=== PATIENT | female | born 1975 | race African-American/Black ===

== ENCOUNTER 2016-07-31 18:56 | Emergency (ER) | payer OTHER ==
[2016-07-31 19:13] VITALS: BP 142/92
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
--- NOTE | 2016-07-31 20:27 | RAD ---
HISTORY: Neck pain, headache, trauma COMPARISONS: November 04, 2009 TECHNIQUE: Multiple contiguous axial CT scans were obtained of the cervical spine without intravenous contrast, with coronal and sagittal multiplanar reformations. FINDINGS: BRAIN: The visualized brain is unremarkable CENTRAL CANAL: Evaluation of the central canal is limited on CT technique, however there is no obvious canalicular mass or epidural hemorrhage. ALIGNMENT: There is straightening of the normal cervical lordosis. VERTEBRAL BODIES: There is multilevel anterolateral marginal osteophyte formation. The odontoid process is intact. JOINTS: There is osteoarthritis of the lateral axial articulation. There is no subluxation or dislocation. MUSCULATURE: Unremarkable INTERVERTEBRAL DISCS: There is diffuse loss of intervertebral disc height. AXIAL IMAGES: On axial images, there is no osseous neural foraminal narrowing or central canal stenosis. SOFT TISSUES: The visualized soft tissues of the neck are unremarkable. The prevertebral fat stripe is preserved. OTHER: None. IMPRESSION: STRAIGHTENING OF THE CERVICAL LORDOSIS. DEGENERATIVE DISC DISEASE AND OSTEOARTHRITIS. NO ACUTE OSSEOUS INJURY TO THE CERVICAL SPINE
[2016-07-31] MEDS ORDERED: Naproxen TAB* 250 MG PO ONE (21:03)
== END 2016-07-31 21:20 | disposition home or self-care (01) ==
LOC: UCEAST 18:56
DX: S16.1XXA Strain of muscle, fascia and tendon at neck level, initial encounter (principal); S39.012A Strain of muscle, fascia and tendon of lower back, initial encounter; S06.0X0A Concussion without loss of consciousness, initial encounter; V43.52XA Car driver injured in collision with other type car in traffic accident, initial encounter; Y93.89 Activity, other specified; Y92.410 Unspecified street and highway as the place of occurrence of the external cause; M50.30 Other cervical disc degeneration, unspecified cervical region; M47.812 Spondylosis without myelopathy or radiculopathy, cervical region; Z88.0 Allergy status to penicillin
CPT/HCPCS: 70450; 72125; 99212; A9270-GY; G0463

== ENCOUNTER 2016-09-03 21:32 | Emergency (ER) | payer BC, OTHER ==
[2016-09-03 21:44] VITALS: BP 156/94
[2016-09-04] MEDS ORDERED: Sulfamethox/Trimethoprim DS 800/160* TAB PO ONE (01:20)
--- NOTE | 2016-09-04 08:03 | RAD ---
INDICATION: Painful indurated right breast mass. COMPARISON: There are no prior studies available for comparison. TECHNIQUE: Multiple real time images of the right breast were obtained. FINDINGS: At the 12:00 position located 1 cm from the nipple there is a complex cyst corresponding to the patient's palpable abnormality. There is an internal septation and a very small area of wall thickening or solid component. The results of this exam were discussed with Dr. Harris. IMPRESSION: THERE IS A COMPLEX CYSTIC MASS CORRESPONDING TO THE PATIENT'S PALPABLE ABNORMALITY. RECOMMEND A FOLLOW-UP MAMMOGRAPHIC STUDY AT THE EARLIEST POSSIBLE CONVENIENCE. IN ADDITION THIS CAN BE ASPIRATED IF CLINICALLY NEEDED. ACR BI-RADS Category 0: Incomplete - Need Additional Imaging Evaluation and /or Prior Mammograms for Comparison
--- NOTE | 2016-09-04 17:38 | ED ---
Breast Complaint - HPI Summary HPI Summary: Patient arrives to ED with CC of right breast mass which she felt this morning. She states it is very painful with warmth and redness. She states it feels heavy with intermittent burning. She is concerned for breast cancer. Denies fever or other symptoms. Patient is HIV positive and is also requesting a test. Patient does not have a family history of breast cancer. She does have a history of breast cysts from several years ago. She denies menses for several months. - History of Current Complaint Hx Obtained From: Patient Breast Chief Complaint: Breast, Left, Palpable Lump, Inflammation, Color Changes Onset/Duration: Started Hours Ago Timing: Constant Breast Pain Aggravating Factors: Palpation, Pressure Breast Pain Alleviating Factors: Nothing Breast Associated Signs/Symptoms: Nodule/Mass, Redness, Warmth - Allergy/Home Medications Allergies/Adverse Reactions: Allergies Allergy/AdvReac Type Severity Reaction Status Date / Time Penicillins [PCN] Allergy Severe Hives/Diff. Verified 07/31/16 19:04 Breathing/I tching citrus fruits Allergy Severe Hives/Diff. Uncoded 04/11/12 17:34 Breathing/I tching PMH/Surg Hx/FS Hx/Imm Hx Previously Healthy: Yes Endocrine/Hematology History: Reports: Hx Thyroid Disease - hypothyroidism Denies: Hx Anticoagulant Therapy, Hx Diabetes Cardiovascular History: Denies: Hx Congestive Heart Failure, Hx Deep Vein Thrombosis, Hx Hypertension , Hx Myocardial Infarction, Hx Pacemaker/ICD Respiratory History: Denies: Hx Asthma, Hx Chronic Obstructive Pulmonary Disease (COPD), Hx Lung Cancer, Hx Pneumonia, Hx Pulmonary Embolism GI History: Denies: Hx Gall Bladder Disease, Hx Gastrointestinal Bleed, Hx Ulcer, Hx Urosepsis History: Denies: Hx Kidney Stones, Hx Renal Disease Neurological History: Reports: Hx Headaches - THROUGHOUT ENTIRE HEAD Denies: Hx Dementia, Hx Migraine, Hx Seizures, Hx Transient Ischemic Attacks (TIA) Psychiatric History: Denies: Hx Anxiety, Hx Depression, Hx Schizophrenia, Hx Bipolar Disorder Infectious Disease History: No Infectious Disease History: Denies: Hx Hepatitis, Hx Human Immunodeficiency Virus (HIV), Traveled Outside the [place] in Last 30 Days - Family History Known Family History: Negative: Cardiac Disease, Hypertension - Social History Occupation: Unemployed Lives: With Family Alcohol Use: None Hx Substance Use: No Substance Use Type: Reports: None Hx Tobacco Use: No Smoking Status (MU): Never Smoked Tobacco Do You Chew or Dip Tobacco: No Review of Systems Constitutional: Negative ENT: Negative Cardiovascular: Negative Respiratory: Negative Musculoskeletal: Negative Positive: Other - palpable 2X3 mass with warmth and redness over right breast Neurological: Negative Psychological: Normal All Other Systems Reviewed And Are Negative: Yes Physical Exam Triage Information Reviewed: Yes Vital Signs On Initial Exam: Initial Vitals Temp Pulse Resp BP Pulse Ox 99.9 F 107 20 156/94 99 09/03/16 21:40 09/03/16 21:40 09/03/16 21:40 09/03/16 21:40 09/03/16 21:40 Vital Signs Reviewed: Yes Appearance: Positive: Well-Appearing, No Pain Distress, Well-Nourished Skin: Positive: Warm, Skin Color Reflects Adequate Perfusion, Other - palpable mass over right breast behind nipple 2X3 cm in size with associated slight warmth and redness. no dimpling or peau D/orange surface noted. extremely painful on palpation per patient. Eyes: Positive: EOMI, KARI Neck: Positive: Supple, No Lymphadenopathy Respiratory/Lung Sounds: Positive: Clear to Auscultation, Decreased Breath Sounds Cardiovascular: Positive: Normal, RRR Abdomen Description: Positive: Nontender Bowel Sounds: Positive: Present Musculoskeletal: Positive: Normal, Strength/ROM Intact Neurological: Positive: Sensory/Motor Intact, Alert, Oriented to Person Place, Time Psychiatric: Positive: Anxious AVPU Assessment: Alert - Shahida Coma Scale Coma Scale Total: 15 Diagnostics - Vital Signs Vital Signs Temp Pulse Resp BP Pulse Ox 09/03/16 21:40 99.9 F 107 20 156/94 99 - Laboratory Lab Statement: Any lab studies that have been ordered have been reviewed, and results considered in the medical decision making process. Breast Pain Course/Dx - Course Course Of Treatment: Palpable mass over right breast behind nipple 2X3 cm in size with associated slight warmth and redness. no dimpling or peau D/orange surface noted. extremely painful on palpation per patient. Patient sent for breast US. Discussed many possibilities for breast lumps. Patient will follow up with Dr. Jay this week for further evaluation. Provider explained she could not determine completely what the breast mass is, but d/t symptoms of mastitis with warmth, redness and tenderness, will treat with abx. Patient allergic to penicillins. Sent rx for bactrim d/t pen allergy. Tylenol for discomfort. - Differential Diagnoses Differential Diagnosis/HQI/PQRI: Breast Abscess, Breast Mass, Fibrocystic Breast Disease, Medication Induced - Diagnoses Provider Diagnoses: Breast mass Discharge - Discharge Plan Condition: Stable Disposition: HOME Prescriptions: Sulfamethox/Trimethoprim DS* [Bactrim DS 800/160 TAB*] 1 tab PO BID #28 tab Patient Education Materials: Breast Mass (ED) Referrals: Damaris Jay MD [Medical Doctor] - Layo Gooden MD [Primary Care Provider] - Additional Instructions: Follow up with your PCP or OBGYN. You have been prescribed bactrim twice daily for 14 days for possible mastitis. As discussed, based on the results of the US, we are unable to determine what the mass may be. We have discussed fibroadenoma, infection (mastitis), and breast cyst. Follow up with your primary or OBGYN for them to determine if you will need further workup. May take ibuprofen 600mg three times daily with meals for any discomfort. If you develop fever, sweats, chills, worsening pain, notice any erythema around the area of concern, red streaking from the area, or drainage - return to ED immediately.
== END 2016-09-04 01:42 | disposition home or self-care (01) ==
LOC: ED 21:32
DX: N63 Unspecified lump in breast (principal)
CPT/HCPCS: 99282; A9270-GY

== ENCOUNTER 2017-05-19 11:12 | Emergency (ER) | payer BC ==
[2017-05-19] MEDS ORDERED: Ibuprofen TAB* 400 MG PO ONE (12:53)
[2017-05-19] MEDS ORDERED: traMADol TAB* 50 MG PO ONE (12:53)
[2017-05-19 13:30] LABS: Hematocrit 36 % (35-47); Hemoglobin 12.1 g/dl (12.0-16.0); Mean Corpuscular HGB Conc 34 g/dl (31-36); Mean Corpuscular Hemoglobin 33 pg (27-31); Mean Corpuscular Volume 96 fL (80-97); Mean Platelet Volume 9 um3 (7.4-10.4); Red Blood Count 3.72 10^6/ul (4.0-5.4); Red Cell Distribution Width 14 % (10.5-15); White Blood Count 8.4 10^3/ul (3.5-10.8)
--- NOTE | 2017-05-19 13:45 | RAD ---
INDICATION: Lower abdominal pain, history of cysts. COMPARISON: Comparison is made with a prior pelvic ultrasound study from March 12, 2017. TECHNIQUE: Multiple real-time transabdominal images of the pelvis were obtained. FINDINGS: The uterus is retroverted and heterogeneous in echogenicity. The uterus measured 9.6 x 5.9 x 6.8 cm. The endometrial echo measured 0.8 cm in thickness. There are masses in the anterior body of the uterus and posterior body and fundus of the uterus measuring 1.8 x 2.3 x 1.7 and 3.8 x 3.7 x 2.2 cm respectively. The right ovary measured 4.4 x 2.2 x 3.6 cm. The left ovary measured 4.5 x 1.7 x 3.3 cm. There is vascular flow within both ovaries. There has been interval resolution of the previously noted small complex ovarian cysts consistent with resolution of physiologic cysts. No free intraperitoneal fluid is seen. IMPRESSION: MILDLY ENLARGED UTERUS WITH SMALL TO MODERATE SIZE FIBROIDS.
[2017-05-19 13:50] LABS: ALT 15 U/L (7-52); AST 17 U/L (13-39); Albumin 3.9 g/dL (3.2-5.2); Alkaline Phosphatase 105 U/L (34-104); Anion Gap 4 mmol/L (2-11); BUN/Creatinine Ratio 14.8 (8-20); Blood Urea Nitrogen 13 mg/dL (6-24); C Reactive Protein 19.07 mg/L (< 5.00); CO2 Carbon Dioxide 27 mmol/L (22-32); Calcium 9.3 mg/dL (8.6-10.3); Chloride 103 mmol/L (101-111); EGFR African American 90.6 (>60); EGFR Non-African American 70.5 (>60); Globulin 3.5 g/dL (2-4); Glucose 88 mg/dL (70-100); Lipase < 10 U/L (11.0-82.0); Potassium 3.5 mmol/L (3.5-5.0); Sodium 134 mmol/L (133-145); Total Protein 7.4 g/dL (6.4-8.9)
[2017-05-19] MEDS ORDERED: Iohexol 300* (CONTRAST) 10 ML SDV IV ONE (14:43)
[2017-05-19 15:14] LABS: Urine Bacteria 1+ (Absent); Urine Bilirubin Negative (Negative); Urine Glucose Negative (Negative); Urine Nitrite Negative (Negative)
--- NOTE | 2017-05-19 16:41 | RAD ---
INDICATION: Lower abdominal pain, elevated C-reactive protein. COMPARISON: Comparison is made with a prior study from March 17, 2010. TECHNIQUE: A CT scan of the abdomen and pelvis was performed with intravenous and oral contrast following intravenous injection of 88 ml of Omnipaque 300 nonionic contrast. Contiguous axial sections were obtained from the lung bases through the symphysis pubis. Images were reconstructed in the coronal and sagittal planes. FINDINGS: The lung bases are clear. No pleural effusion is present. The liver and spleen are normal in size. There are several very small hypodensities present within the liver which are too small to characterize by CT although likely represent cysts. No intra or extrahepatic ductal distention is noted. No calcified gallstones are seen. The pancreas appears to be within normal limits. The kidneys and adrenal glands are normal in size. No hydronephrosis is seen. No significant focal renal abnormality is seen. The aorta is normal in caliber and demonstrates homogeneous contrast opacification. No significant enlarged retroperitoneal lymph nodes are seen. The stomach, small and large bowel appear nondistended. The appendix is within normal limits. There are a few scattered diverticuli. There is no evidence for diverticulitis or colitis. The uterus is retroverted and within normal limits in size. No ovarian cysts are seen. No free intraperitoneal air or fluid is seen. No significant focal osseous abnormality is seen. IMPRESSION: NO EVIDENCE FOR ACUTE FINDING OR CAUSE FOR THE PATIENT'S ABDOMINAL PAIN IS SEEN.
[2017-05-19 17:45] VITALS: BP 129/97
--- NOTE | 2017-05-19 20:01 | ED ---
Mariola Yoon Gabriel, scribed for Tuan Mae MD on 05/19/17 at 1233 . Abdominal Pain/Female - HPI Summary HPI Summary: This patient is a 42 year old F presenting to [facility] accompanied by mother with a chief complaint of ABD since January. The patient rates the pain 7/10 in severity. Symptoms aggravated by moving. Patient reports lactating, nausea, back pain, increased urination, and fatigue. Patient denies fever, trouble with BM, and melena. 5 days ago she had trouble standing up and 4 days ago she began feeling like everything was going to fall out when she has a BM. She has a cyst in her left breast that is benign. Patient denies sexual activity in the last couple months. - History of Current Complaint Chief Complaint: EDAbdPain Stated Complaint: LOWER ABD PAIN Time Seen by Provider: 05/19/17 12:31 Hx Obtained From: Patient Hx Last Menstrual Period: 05/16/17 ?: No Onset/Duration: Lasting Weeks - since january, Still Present Timing: Constant Severity Currently: Moderate Pain Intensity: 7 Pain Scale Used: 0-10 Numeric Aggravating Factor(s): Movement Associated Signs and Symptoms: Positive: Negative - melena, Back Pain, Urinary Symptoms - increased urination, Nausea, Other: - . Negative: Fever, Vomiting Allergies/Adverse Reactions: Allergies Allergy/AdvReac Type Severity Reaction Status Date / Time Penicillins [PCN] Allergy Severe Hives/Diff. Verified 05/19/17 11:19 Breathing/I tching citrus fruits Allergy Severe Hives/Diff. Uncoded 05/19/17 11:19 Breathing/I tching PMH/Surg Hx/FS Hx/Imm Hx Previously Healthy: No Endocrine/Hematology History: Reports: Hx Thyroid Disease - hypothyroidism Denies: Hx Anticoagulant Therapy, Hx Diabetes Cardiovascular History: Denies: Hx Congestive Heart Failure, Hx Deep Vein Thrombosis, Hx Hypertension , Hx Myocardial Infarction, Hx Pacemaker/ICD Respiratory History: Denies: Hx Asthma, Hx Chronic Obstructive Pulmonary Disease (COPD), Hx Lung Cancer, Hx Pneumonia, Hx Pulmonary Embolism GI History: Denies: Hx Gall Bladder Disease, Hx Gastrointestinal Bleed, Hx Ulcer, Hx Urosepsis History: Denies: Hx Kidney Stones, Hx Renal Disease Neurological History: Reports: Hx Headaches - THROUGHOUT ENTIRE HEAD Denies: Hx Dementia, Hx Migraine, Hx Seizures, Hx Transient Ischemic Attacks (TIA) Psychiatric History: Denies: Hx Anxiety, Hx Depression, Hx Schizophrenia, Hx Bipolar Disorder Infectious Disease History: No Infectious Disease History: Denies: Hx Hepatitis, Hx Human Immunodeficiency Virus (HIV), Traveled Outside the [place] in Last 30 Days - Family History Known Family History: Negative: Cardiac Disease, Hypertension - Social History Alcohol Use: None Hx Substance Use: No Substance Use Type: Reports: None Hx Tobacco Use: No Smoking Status (MU): Never Smoked Tobacco Review of Systems Positive: Fatigue, Other - . Negative: Fever, Chills Negative: Erythema Negative: Sore Throat Negative: Chest Pain Negative: Shortness Of Breath, Cough Positive: Abdominal Pain, Nausea, Other - increased urination . Negative: Vomiting Genitourinary: Negative - trouble with BM, melena Negative: dysuria, hematuria Positive: Other - back pain. Negative: Myalgia, Edema Negative: Rash Neurological: Negative - dizziness All Other Systems Reviewed And Are Negative: Yes Physical Exam - Summary Physical Exam Summary: Constitutional: Well-developed, Well-nourished, Alert. (-) Distressed Skin: Warm, Dry HENT: Normocephalic; Atraumatic Eyes: Conjunctiva normal Neck: Musculoskeletal ROM normal neck. (-) JVD, (-) Stridor, (-) Tracheal deviation Cardio: Rhythm regular, rate normal, Heart sounds normal; Intact distal pulses; The pedal pulses are 2+ and symmetric. Radial pulses are 2+ and symmetric. (-) Murmur Pulmonary/Chest wall: Effort normal. (-) Respiratory distress, (-) Wheezes, (-) Rales Abd: Soft, (-) Tenderness, (-) Guarding, (-) Rebound. Patient is reporting pain but there is not significant abdominal tenderness. Her abdomen is protuberant. Musculoskeletal: (-) Edema Lymph: (-) Cervical adenopathy Neuro: Alert, Oriented x3 Psych: Mood and affect Normal Triage Information Reviewed: Yes Vital Signs On Initial Exam: Initial Vitals Temp Pulse Resp BP Pulse Ox 98.2 F 97 16 133/84 99 05/19/17 11:19 05/19/17 11:19 05/19/17 11:19 05/19/17 11:19 05/19/17 11:19 Vital Signs Reviewed: Yes Diagnostics - Vital Signs Vital Signs Temp Pulse Resp BP Pulse Ox 05/19/17 11:19 98.2 F 97 16 133/84 99 - Laboratory Result Diagrams: 05/19/17 13:18 05/19/17 13:18 Lab Statement: Any lab studies that have been ordered have been reviewed, and results considered in the medical decision making process. - CT CT ABD/Pelvis CT Interpretation Completed By: Radiologist - NO EVIDENCE FOR ACUTE FINDING OR CAUSE FOR THE PATIENT'S ABDOMINAL PAIN IS SEEN. ED physician has reviewed this radiology report and agrees. - Additional Comments Diagnostic Additional Comments: Pelvic US reveals, per radiologist, MILDLY ENLARGED UTERUS WITH SMALL TO MODERATE SIZE FIBROIDS. ED physician has reviewed this radiology report and agrees. Abdominal Pain Fem Course/Dx - Diagnoses Provider Diagnoses: Chronic pelvic pain in female Discharge - Discharge Plan Condition: Stable Disposition: HOME Patient Education Materials: Pelvic Pain in Women (ED) Referrals: Layo Gooden MD [Primary Care Provider] - Elroy Campbell MD [Medical Doctor] - Additional Instructions: Follow up with Dr. Campbell, OB. Take aspirin as needed for pain. RETURN TO THE EMERGENCY DEPARTMENT FOR CHANGING OR WORSENING SYMPTOMS The documentation as recorded by the Mariola smith Gabriel accurately reflects the service I personally performed and the decisions made by me, Tuan Mae MD.
== END 2017-05-19 17:45 | disposition home or self-care (01) ==
LOC: ED 11:12
DX: R10.2 Pelvic and perineal pain (principal); G89.29 Other chronic pain
CPT/HCPCS: 36415; 74177; 76856; 80053; 81003; 81015; 83605; 83690; 84702; 85025; 86140; 87086; 96374; 99282; A9270-GY; Q9967

== ENCOUNTER 2018-07-19 21:31 | Emergency (ER) | payer BC, OTHER ==
[2018-07-19 21:45] VITALS: BP 151/99
--- NOTE | 2018-07-19 22:37 | UC ---
Minor Trauma HPI - HPI Summary HPI Summary: PATIENT SLIPPED ON THE ICE AND FELL TODAY LANDING ON HER RIGHT KNEE AND RIGHT ARM. COMES IN WITH PAIN AND DECREASED RANGE OF MOTION. NO HEAD INJURY OR LOC. - History of Current Complaint Chief Complaint: UCLowerExtremity Stated Complaint: SIDE AND KNEE INJURY Time Seen by Provider: 07/19/18 22:24 Hx Obtained From: Patient Hx Last Menstrual Period: one week ago Onset/Duration: Sudden Onset, Lasting Hours, Still Present Onset Of Pain: Immediate Severity Initially: Moderate Severity Currently: Moderate Pain Intensity: 7 Pain Scale Used: 0-10 Numeric Mechanism Of Injury: Fall From A Standing Position Aggravating Factor(s): Movement Alleviating Factor(s): Nothing Associated Signs And Symptoms: Negative: Loss Of Consciousness, Ecchymosis, Swelling - Allergies/Home Medications Allergies/Adverse Reactions: Allergies Allergy/AdvReac Type Severity Reaction Status Date / Time Penicillins Allergy Hives/Diff. Verified 07/19/18 21:45 Breathing/I tching citrus fruits Allergy Severe Hives/Diff. Uncoded 05/19/17 11:19 Breathing/I tching Home Medications: Home Medications NK [No Home Medications Reported] 07/19/18 [History Confirmed 07/19/18] PMH/Surg Hx/FS Hx/Imm Hx Endocrine History: Thyroid Disease Other History Of: Negative For: HIV, Hepatitis B, Hepatitis C, Anticoagulant Therapy - Surgical History Surgical History: None - Family History Known Family History: Negative: Cardiac Disease, Hypertension - Social History Alcohol Use: None Substance Use Type: None Smoking Status (MU): Never Smoked Tobacco - Immunization History Most Recent Influenza Vaccination: doesn't usually get Review of Systems All Other Systems Reviewed And Are Negative: Yes Constitutional: Positive: Negative Skin: Positive: Negative Respiratory: Positive: Negative Cardiovascular: Positive: Negative Gastrointestinal: Positive: Negative Musculoskeletal: Positive: Arthralgia, Decreased ROM, Myalgia Physical Exam Triage Information Reviewed: Yes Appearance: Well-Nourished, Pain Distress - MODERATE Vital Signs: Initial Vital Signs Temp 99.2 F 07/19/18 21:41 Pulse 97 07/19/18 21:41 Resp 18 07/19/18 21:41 BP 151/99 07/19/18 21:41 Pulse Ox 99 07/19/18 21:41 Vital Signs Reviewed: Yes Eyes: Positive: Conjunctiva Clear ENT: Positive: Hearing grossly normal Neck: Positive: Supple Respiratory: Positive: No respiratory distress, No accessory muscle use Cardiovascular: Positive: Pulses Normal Abdomen Description: Positive: Soft Musculoskeletal: Positive: No Edema, ROM Limited @ - RIGHT KNEE, Other: - TTP DIFFUSELY OVER RIGHT KNEE. FULL EXAM NOT PERFORMED DUE TO PT INTOLERANCE. TTP DIFFUSELY OVER RIGHT FOREARM. NO WRIST/HAND TENDERNESS. NO SHOULDER JOINT TENDERNESS. TENDER RIGHT TRAPEZIUS Neurological: Positive: Alert Psychological: Positive: Age Appropriate Behavior Skin: Negative: Rashes Diagnostics - Radiology RIGHT KNEE XRAY Radiology Interpretation Completed By: ED Physician Summary of Radiographic Findings: UNREMARKABLE RIGHT FOREARM XRAY Radiology Interpretation Completed By: ED Physician Summary of Radiographic Findings: UNREMARKABLE Minor Trauma Course/Dx - Differential Dx/Diagnosis Provider Diagnosis: Right knee sprain, Contusion of right forearm Discharge - Sign-Out/Discharge Documenting (check all that apply): Patient Departure All imaging exams completed and their final reports reviewed: No - Discharge Plan Condition: Stable Disposition: HOME Patient Education Materials: Knee Sprain (ED), Contusion in Adults (ED) Referrals: Layo Gooden MD [Primary Care Provider] - If Needed Additional Instructions: XRAYS TODAY NEGATIVE FOR FRACTURE OR DISLOCATION ON MY INITIAL INTERPRETATION. WE WILL CALL YOU TOMORROW IF THE RADIOLOGY READ DIFFERS. YOUR SYMPTOMS SHOULD IMPROVE SIGNIFICANTLY OVER THE NEXT 1-2 WEEKS. IF YOU DO NOT IMPROVE EXPECTED FOLLOW-UP WITH YOUR PCP. YOU MAY BENEFIT FROM REPEAT IMAGING AT THAT TIME. OTC IBUPROFEN OR ALEVE NEEDED FOR DISCOMFORT. REST, ICE, COMPRESS, ELEVATE. BE SURE TO GO THROUGH SLOW RANGE OF MOTION AND STRETCHING EXERCISES DAILY YOU ARE ABLE TO PREVENT STIFFENING UP AND MAKING THE DISCOMFORT WORSE. IBUPROFEN MAX DOSE: 600MG (3 TABS) EVERY 6 HRS OR 800MG (4 TABS) EVERY 8 HRS OR NAPROXEN MAX DOSE: 440MG (2 TABS) EVERY 12 HRS TYLENOL MAX DOSE: 1000MG (2 EXTRA STRENGTH TABS) EVERY 8 HRS OR 650MG (2 REGULAR TABS) EVERY 6 HRS - Billing Disposition and Condition Condition: STABLE Disposition: Home
--- NOTE | 2018-07-20 15:07 | UC ---
- Progress Note Progress Note: OFFICIAL RADIOLOGY REPORT REVIEWED AND CONFIRMS NO FRACTURE. NO CHANGE IN MGMT. Course/Dx - Diagnoses Provider Diagnoses: Right knee sprain, Contusion of right forearm Discharge - Sign-Out/Discharge Documenting (check all that apply): Post-Discharge Follow Up All imaging exams completed and their final reports reviewed: Yes - Discharge Plan Condition: Stable Disposition: HOME Patient Education Materials: Knee Sprain (ED), Contusion in Adults (ED) Referrals: Layo Gooden MD [Primary Care Provider] - If Needed Additional Instructions: XRAYS TODAY NEGATIVE FOR FRACTURE OR DISLOCATION ON MY INITIAL INTERPRETATION. WE WILL CALL YOU TOMORROW IF THE RADIOLOGY READ DIFFERS. YOUR SYMPTOMS SHOULD IMPROVE SIGNIFICANTLY OVER THE NEXT 1-2 WEEKS. IF YOU DO NOT IMPROVE EXPECTED FOLLOW-UP WITH YOUR PCP. YOU MAY BENEFIT FROM REPEAT IMAGING AT THAT TIME. OTC IBUPROFEN OR ALEVE NEEDED FOR DISCOMFORT. REST, ICE, COMPRESS, ELEVATE. BE SURE TO GO THROUGH SLOW RANGE OF MOTION AND STRETCHING EXERCISES DAILY YOU ARE ABLE TO PREVENT STIFFENING UP AND MAKING THE DISCOMFORT WORSE. IBUPROFEN MAX DOSE: 600MG (3 TABS) EVERY 6 HRS OR 800MG (4 TABS) EVERY 8 HRS OR NAPROXEN MAX DOSE: 440MG (2 TABS) EVERY 12 HRS TYLENOL MAX DOSE: 1000MG (2 EXTRA STRENGTH TABS) EVERY 8 HRS OR 650MG (2 REGULAR TABS) EVERY 6 HRS - Billing Disposition and Condition Condition: STABLE Disposition: Home
== END 2018-07-19 23:13 | disposition home or self-care (01) ==
LOC: UCEAST 21:31
DX: S83.91XA Sprain of unspecified site of right knee, initial encounter (principal); S50.11XA Contusion of right forearm, initial encounter; W00.0XXA Fall on same level due to ice and snow, initial encounter; Y92.9 Unspecified place or not applicable
CPT/HCPCS: 99212; G0463

== ENCOUNTER 2019-05-08 10:06 | Emergency (ER) | payer BC, OTHER ==
[2019-05-08 10:17] VITALS: BP 151/104
--- NOTE | 2019-05-08 10:29 | UC ---
Back Pain HPI - HPI Summary HPI Summary: CHIEF COMPLAINT and HPI: This is a 44-year-old female who fell approximately 24 hours ago, landing on her left buttocks. She complains of 8 out of 10 buttocks pain. Note is made of a blood pressure of 151/104. The patient is on thyroid medication, but is not on any antihypertensive medication. She is HIV positive. She also states that on April 16 she had a D&C. She is now having her period. She describes as very heavy. She denies abdominal pain. She denies blood in the stools in her urine. Description of Pain: Location:area of the coccyx Radiation:nonradiating Type:, worse with ambulation and sitting Intensity:moderate to severe Variation:, better with standing. VITAL SIGNS & SaO2 REVIEWED. Within normal limits unless noted here. NURSES NOTE REVIEWED. - History of Current Complaint Chief Complaint: UCBackPain Stated Complaint: BACK INJURY Time Seen by Provider: 05/08/19 10:24 Hx Last Menstrual Period: 05/06/19 Pain Intensity: 8 - Allergies/Home Medications Allergies/Adverse Reactions: Allergies Allergy/AdvReac Type Severity Reaction Status Date / Time fentanyl Allergy difficulty Verified 05/08/19 10:17 wakening Penicillins Allergy Hives/Diff. Verified 05/08/19 10:17 Breathing/I tching citrus fruits Allergy Severe Hives/Diff. Uncoded 05/08/19 10:17 Breathing/I tching Home Medications: Home Medications Levothyroxine TAB* [Synthroid 100 MCG TAB*] 100 mcg PO DAILY 05/08/19 [History Confirmed 05/08/19] PMH/Surg Hx/FS Hx/Imm Hx - Additional Past Medical History Additional PMH: PAST MEDICAL HISTORY- patient is hypothyroid and is on levothyroxine. Patient is HIV positive and has a CD4 count of 1500. CHRONIC and RECURRENT HEALTH PROBLEM LIST REVIEWED. Information relevant to present complaint: patient is having menses and had a D& C for an ovarian cyst on April 16, 2019 VISIT HISTORY REVIEWED. MEDICATIONS & ALLERGIES REVIEWED. HYPERTENSION STATUS:No antihypertensive medication. FAMILY HISTORY:. Hypertension. SOCIAL HISTORY: non-smoker. . Previously Healthy: Yes Other History Of: Negative For: HIV, Hepatitis B, Hepatitis C, Anticoagulant Therapy - Surgical History Surgical History: None - Family History Known Family History: Negative: Cardiac Disease, Hypertension - Social History Alcohol Use: None Substance Use Type: None Smoking Status (MU): Never Smoked Tobacco - Immunization History Most Recent Influenza Vaccination: doesn't usually get Review of Systems All Other Systems Reviewed And Are Negative: Yes Constitutional: Positive: Negative Respiratory: Positive: Negative Cardiovascular: Positive: Negative Gastrointestinal: Positive: Negative Musculoskeletal: Positive: Myalgia - coccyx and left buttocks Is Patient Immunocompromised?: No - hiv cd [phone] Physical Exam - Summary Physical Exam Summary: Appearance: The patient is well-appearing, is in no pain or distress, and is well-nourished. Eyes: Conjunctiva are clear. Pupils are equal and reactive to light and accommodation. Extra ocular muscle movement is intact. ENT: The hearing is grossly normal, the pharynx is normal, and the TMs are normal. There is no muffled or hoarse voice. No stridor. Neck: The neck is supple and there is no lymphadenopathy. Respiratory: The chest is non-tender to palpation and without crepitus. The lungs are clear, there are normal breath sounds, and there is no respiratory distress. No wheezes, rales or rhonchi. Cardiovascular: Heart sounds reveal a regular rate and rhythm. There are no clicks, rubs or murmurs. There are no carotid bruits or thrills. Circulation is grossly intact. Abdomen: The abdomen is soft and nontender. There is no organomegaly. Bowel sounds are present and within normal limits. No point tenderness at McBurneys point. No CVA tenderness. Musculoskeletal: Strength is intact. The patient moves all extremities. Patient walks slowly because of left buttocks pain. Very tender to palpation over the coccyx. . No spine tenderness or CVA tenderness. Neurological: The patient is alert. Motor and sensory are examination grossly intact. Speech is normal. Psychological: The patient displays age appropriate behavior, and is conversant. GCS=15. Skin: Negative for rashes. X RAY: IMPRESSION: NO ACUTE OSSEOUS INJURY OF THE SACRUM AND COCCYX. PLAIN RADIOGRAPHS ARE RELATIVELY INSENSITIVE TO NONDISPLACED FRACTURES OF THE SACRUM AND COCCYX. IF THERE IS PERSISTENT CLINICAL CONCERN FOR SACROCOCCYGEAL OSSEOUS PATHOLOGY, BONE SCANNING MAY BE MORE SENSITIVE. Triage Information Reviewed: Yes Vital Signs: Initial Vital Signs Temp 98.4 F 05/08/19 10:14 Pulse 88 05/08/19 10:14 Resp 16 05/08/19 10:14 BP 151/104 05/08/19 10:14 Pulse Ox 100 05/08/19 10:14 Back Pain Course/Dx - Course Course Of Treatment: This is a 44-year-old female who fell approximately 24 hours ago, landing on her left buttocks. She complains of 8 out of 10 buttocks pain. Note is made of a blood pressure of 151/104. The patient is on thyroid medication, but is not on any antihypertensive medication. She is HIV positive. She also states that on April 16 she had a D&C. She is now having her period. She describes as very heavy. She denies abdominal pain. She denies blood in the stools in her urine. Patient contacted her physician and has been started on a medication to control her heavy menses. She will use ibuprofen and acetaminophen for discomfort. Her x-ray is negative for fracture. She is tender over the coccyx.The diagnosis is contusion of the coccyx. We have discussed her high blood pressure and she needs to follow-up with her physician for this. - Differential Dx/Diagnosis Differential Diagnosis/HQI/PQRI: Fracture, Strain, Sprain Provider Diagnosis: Contusion of coccyx Discharge ED - Sign-Out/Discharge Documenting (check all that apply): Patient Departure All imaging exams completed and their final reports reviewed: Yes - Discharge Plan Condition: Stable Disposition: HOME Patient Education Materials: Coccyx Injury (ED) Referrals: Layo Gooden MD [Primary Care Provider] - Additional Instructions: WE DISCUSSED: you have a bad bruise of your coccyx. Make sure that you don' t have any blood in her stool or in your urine over the next few days. Take your medication for your heavy period as prescribed by your doctor. Go to the emergency department for any lightheadedness, fainting, or shortness of breath. PLEASE SEEK CARE AT THE EMERGENCY DEPARTMENT IF SYMPTOMS WORSEN OR IF NEW SYMPTOMS DEVELOP. FOLLOW UP WITH YOUR PRIMARY CARE PHYSICIAN IF CONDITION CONTINUES BEYOND 3 DAYS WITHOUT IMPROVEMENT. YOUR DIAGNOSIS IS:contusion of the coccyx. YOUR PRESCRIPTION RECOMMENDATION IS:none. OTHER INSTRUCTIONS:151/104. Hypertension Discharge Instructions: Your blood pressure reading today was 151/104, indicating HYPERTENSION. Follow- up with your primary care provider within 2 weeks for blood pressure check and appropriate recommendations and treatment, as needed. FOR PAIN AND/OR SLEEP: For pain: Ibuprofen (Motrin and other brand names) 400-600mg PLUS acetaminophen (Tylenol and other brand names) 500mg - 1000mg every 8 hours. - Billing Disposition and Condition Condition: STABLE Disposition: Home
== END 2019-05-08 12:06 | disposition home or self-care (01) ==
LOC: UCEAST 10:06
DX: S30.0XXA Contusion of lower back and pelvis, initial encounter (principal); E03.9 Hypothyroidism, unspecified; Z88.0 Allergy status to penicillin; Z88.5 Allergy status to narcotic agent; Z91.018 Allergy to other foods; Z79.899 Other long term (current) drug therapy; W19.XXXA Unspecified fall, initial encounter; Y92.9 Unspecified place or not applicable
CPT/HCPCS: 72220; 99211; G0463

== ENCOUNTER 2019-09-17 07:44 | Day surgery (SDC) | payer BC ==
[~2019-09-17 07:44] MED LIST: Buffered Lidocaine 1% SYRIN* 1 ML/SYRINGE INTRADERM ONE; DOXYcycline IV 200 MG in NS 250 mL *Pre-Op OBGYN IVPB ONE; Lactated Ringers 1000 ML Bag* 1,000 ML IV SCH
[2019-09-17] MEDS ORDERED: Buffered Lidocaine 1% SYRIN* 1 ML/SYRINGE INTRADERM ONE (08:14)
[2019-09-17] MEDS ORDERED: Lidocaine 2% JELLY* 6 ML JELLY TOPICAL ONE (09:49)
[2019-09-17] MEDS ORDERED: Lidocaine 1% w EPI 1:100,000* MDV 20 ML VIAL ONE (10:02)
[2019-09-17 10:45] VITALS: BP 153/94
--- NOTE | 2019-09-17 17:00 | OP ---
OPERATIVE REPORT: DATE OF OPERATION: 09/17/19 DATE OF : 75 SURGEON: Damaris Jay MD ANESTHESIA: Local anesthesia. PRE-OP DIAGNOSES: 1. Status post spontaneous . 2. Desires intrauterine device insertion. POST-OP DIAGNOSES: 1. Status post spontaneous . 2. Desires intrauterine device insertion. OPERATIVE PROCEDURE: Insertion of intrauterine device. ESTIMATED BLOOD LOSS: Minimal. FLUIDS: Crystalloid. DRAINS: Peck catheter. COMPLICATIONS: None. INDICATIONS: The patient was originally scheduled for a suction D and C for missed AB with placement of levonorgestrel IUD following the procedure; however , she had had increased bleeding since her prior ultrasound; therefore, repeat ultrasound was done just prior to the procedure, which was consistent with completed SAB. The endometrial lining was 1.3 cm and the prior gestational sac was no longer seen. In her ovaries, she did have bilateral cysts, but they were smaller than they had been on previous ultrasound on 09/12/19. Also, her hCG had dropped from about 1100 to 100. After discussion was had with the patient, she agreed to not do the D and C as it does not appear to be necessary. She did wish to proceed with the IUD insertion. The risks were reviewed prior to the procedure. DESCRIPTION OF PROCEDURE: After informed consent was signed, the patient was taken to the operating room where she was draped in the lithotomy position. A speculum was placed into the vagina to expose the cervix. The cervix was cleansed with Betadine and a cervical block was given with 1% lidocaine with epi. Anterior lip of the cervix was grasped with a single-tooth tenaculum and the cervix was dilated using an Os Finder and then uterine sound to sound the uterus to 8 cm. The uterus was retroverted. At first, the Verna IUD was used to insert into the uterine cavity, but upon deploying the Verna, it did not complete detach from the insertion device and it was removed with the insertion device; therefore, as the hospital was out of further [place], with the patient' s agreement, a Mirena IUD was then inserted without complication and the strings were trimmed to about 2 to 3 cm. The speculum was then removed from the vagina. The patient was placed back into supine position and moved to the recovery room in stable condition. [id number]/[facility] #: [id number] [facility]ENTERKiya
== END 2019-09-17 10:45 | disposition home or self-care (01) ==
LOC: OR 07:44
PROVIDERS: ATTEND Obstetrics & Gynecology
DX: O03.9 Complete or unspecified spontaneous abortion without complication (principal); Z30.430 Encounter for insertion of intrauterine contraceptive device; N83.202 Unspecified ovarian cyst, left side; N83.201 Unspecified ovarian cyst, right side; E22.1 Hyperprolactinemia; R10.2 Pelvic and perineal pain; N94.9 Unspecified condition associated with female genital organs and menstrual cycle; F41.8 Other specified anxiety disorders; E03.9 Hypothyroidism, unspecified; Z21 Asymptomatic human immunodeficiency virus [HIV] infection status
CPT/HCPCS: 36415; 84702; J7300